=== PATIENT | female | born 1975 | race Caucasian/White ===

== ENCOUNTER 2018-11-30 20:42 | Emergency (ER) | payer MEDICAID ==
[~2018-11-30] VITALS: Ht 157.5 cm; Wt 78.5 kg
[2018-11-30 21:17] VITALS: Ht 157.5 cm; Wt 78.5 kg
--- NOTE | 2018-12-01 00:41 | ERD ---
ER Documentation Chief Complaint Chief Complaint scanty vag bleed since 1700, 14 wks preg; 1st time HPI 43-year-old female, with a EGA 13 weeks by LMP 09/02/18, presents to the emergency, complaining of 1 day, associated with mild pelvic pain. The patient has well-established care with Dr. Pradeep Sánchez. She denies fevers, no chills, no urinary symptoms. ROS All systems reviewed and are negative except as per history of present illness. Allergies Allergies: Coded Allergies: No Known Allergy (Unverified , 11/30/18) Physical Exam Vitals Vital Signs Date Temp Pulse Resp B/P (MAP) Pulse Ox O2 O2 Flow FiO2 Time Delivery Rate 11/30/18 98.3 79 18 117/66 97 21:17 (83) Physical Exam Const: No acute distress Head: Atraumatic Eyes: Normal Conjunctiva ENT: Normal External Ears, Nose and Mouth. Neck: Full range of motion. No meningismus. Resp: Clear to auscultation bilaterally Cardio: Regular rate and rhythm, no murmurs Abd: Soft, non tender, non distended. Normal bowel sounds Skin: No petechiae or rashes Back: No midline or flank tenderness Ext: No cyanosis, or edema Neur: Awake and alert Psych: Normal Mood and Affect Results 24 hrs Laboratory Tests Test 12/01/18 00:49 Bedside Urine pH (LAB) 5.5 Bedside Urine Protein (LAB) Negative Bedside Urine Glucose (UA) Negative Bedside Urine Ketones (LAB) 2+ Bedside Urine Blood 1+ Bedside Urine Nitrite (LAB) Negative Bedside Urine Leukocyte Esterase (L Negative Patient: YONAS JEAN : 1975 Age: 43 Sex: F MR #: [id number] DOS: 12/01/18 0040 Ordering MD: DOUG ORELLANA MD Location: [facility] Room/Bed: PROCEDURE: US OB 1st trimester. CLINICAL INDICATION: Bleeding TECHNIQUE: Multiple sonographic images of the pelvis were obtained. The images were reviewed on a PACS workstation. COMPARISON: None FINDINGS: There is a single live intrauterine , measured crown-rump length 6.98 cm corresp onds to an estimated age of 13 weeks 1 day. heart rate 154 beats per minute. Placental location is anterior. There is no evidence for abruption. There are multiple uterine fibroids, largest in the lower body of the uterus measures 4.6 x 4.5 cm. Ovaries are not visualized. No adnexal masses identified. No evidence of pelvic free fluid. IMPRESSION: Single live intrauterine gestation of approximately 13 weeks 1 day. Estimated date of delivery 06/07/2019. Multiple uterine fibroids. Ovaries not visualized. RPTAT: [facility] Physician Daniel Date Time Electronically viewed and signed by Physician Daniel on 12/01/2018 02:00 xB/ CC: DOUG ORELLANA MD Procedures/MDM Vital signs stable, Physical exam unremarkable. Differential diagnosis include but not limited to: UTI, threatening , incomplete versus complete , ectopic , physiologic implantation bleeding, molar . Physical examination and clinical presentation most likely consistent with threatening . During the ED course the patient remained hemodynamically stable and asymptomatic. Results and clinical impression discussed with patient who agrees with management. The patient is stable to be treated outpatient and will be discharged home with close monitoring and follow-up in 2 days with her primary physician. Bed rest and pelvic rest recommended until further medical evaluation. The patient was instructed regarding the outcomes and the potential complications like severe bleeding and . If the patient presents severe bleeding or pain, she was instructed to return to the hospital immediately. Disclaimer: Inadvertent spelling and grammatical errors are likely due to EHR/dictation software use and do not reflect on the overall quality of patient care. Also, please note that the electronic time recorded on this note does not necessarily reflect the actual time of the patient encounter. Departure Diagnosis: Primary Impression: Vaginal bleeding in patient at less than 20 weeks gestation Condition: Stable Additional Instructions: Muchas freddie por [facility] para echeverria servicio. Esperamos que en echeverria visita a la rama de emergencia echeverria problema medico haya sido solucionado y que se sienta mucho mejor. Para estar seguros que echeverria mejoria sigue en proceso, le pedimos el favor de hacer fani jasper de seguimiento medico con echeverria doctor primario en los proximos 2-4 villegas. Lleve con usted estos documentos y las medicinas recetadas. Si nicola sintomas empeoran, NO SE ESPERE, por favor regrese a rama de emergencia INMEDIATAMENTE. En darell que usted no tenga un mdico de atencin primaria: Llame al mdico o clnica comunitaria de referencia que aparece abajo rhys las horas de consultorio para hacer fani jasper para que le vean. CLINICAS: [facility] [phone] [facility] [phone] [facility] [phone] [place] [id number] [phone] [facility] [phone] [facility]. [phone] DOUG GONZALEZ MD Dec 01, 2018 00:41
[2018-12-01 02:37] VITALS: BP 113/78; PULSE 71; RESP 16
== END 2018-12-01 02:38 | disposition home or self-care (01) ==
LOC: FTE 20:42
DX: O20.9 Hemorrhage in early pregnancy, unspecified (principal); Z3A.13 13 weeks gestation of pregnancy
CPT/HCPCS: 76801; 81003; Z7502